=== PATIENT | male | born 1995 | race American Indian/Alaskan Native ===

== ENCOUNTER 2020-12-13 18:31 | Emergency (ER) | payer OTHER ==
[2020-12-13] MEDS ORDERED: oxyCODONE /ACETAMINOPHEN 5-325MG TAB PO ONE (18:56)
[2020-12-13] MEDS ORDERED: ONDANSETRON 4 MG ODT TAB PO ONE (18:56)
--- NOTE | 2020-12-13 18:59 | Emergency Department Report ---
ED General Adult HPI - General Chief complaint: Extremity Injury, Lower Stated complaint: LEG INJURY Time Seen by Provider: 12/13/20 18:51 Source: patient Mode of arrival: Ambulatory Limitations: No Limitations - History of Present Illness Initial comments: 25-year-old male patient presents to the emergency department with complaints of a crush injury to his right foot occurring prior to arrival. Patient states he was working on a van when one of the tires accidentally ran over his foot. Tetanus is up-to-date. No other injuries. - Related Data Previous Rx's Medication Instructions Recorded Last Taken Type Mupirocin [Bactroban 2%] 1 applic TP TID #1 tube 12/13/20 Unknown Rx Allergies Allergy/AdvReac Type Severity Reaction Status Date / Time No Known Allergies Allergy Verified 12/13/20 18:53 ED Review of Systems ROS: Stated complaint: LEG INJURY Other details as noted in HPI Other: CARDIOVASCULAR: Negative for chest pain. PULMONARY: Negative for dyspnea. GASTROINTESTINAL: Negative for abdominal pain. MUSCULOSKELETAL: Positive for joint pain. NEUROLOGICAL: Negative for headache. INTEGUMENTARY: Positive for skin tears. ED Past Medical Hx - Past Medical History Hx Asthma: Yes - Medications Home Medications: Home Medications Medication Instructions Recorded Confirmed Last Taken Type Mupirocin [Bactroban 2%] 1 applic TP TID #1 tube 12/13/20 Unknown Rx ED Physical Exam - General Limitations: No Limitations - Other Other exam information: General: Awake, appropriately interactive, no acute distress. Neck: Supple. Full range of motion intact. Cardiovascular: Normal peripheral perfusion. Pulmonary: No respiratory distress. Patient is speaking normally without use of accessory muscles. Skin: No apparent rashes. Neurological: No facial asymmetry. Speech is clear. Follows commands. Patient is alert and oriented. Musculoskeletal: Tenderness to palpation throughout the dorsal aspect of the right foot without obvious deformity or dislocation. Two large skin tears noted to the dorsum of the foot and along the lateral malleolus. Bleeding is controlled. The wounds do not appear grossly contaminated. Sensation intact. No plantar ecchymosis. Strong dorsalis pedis pulse. Compartments are soft. Pain is appropriately proportional to exam findings. Distal neurovascular and motor/sensory function intact. Psych: Cooperative. Appropriate mood and affect. ED Course Vital Signs 12/13/20 12/13/20 18:45 18:53 Temperature 98.4 F 98.0 F Pulse Rate 87 66 Respiratory 18 12 Rate Blood Pressure 120/72 Blood Pressure 129/78 [Right] O2 Sat by Pulse 95 100 Oximetry ED Medical Decision Making - Medical Decision Making Differential diagnosis including but not limited to: sprain, strain, fracture, contusion, dislocation, compartment syndrome On reevaluation, patient remains stable. Repeat neurovascular exam remains intact. X-rays without acute process. Pain is appropriately proportional to exam findings without clinical evidence to suggest compartment syndrome. Patient will be discharged home with topical antibiotics and primary care provider referral for close outpatient follow-up. Patient expressed understanding and is agreeable to plan of care. RICE precautions discussed. Wound care precautions discussed. Strict return precautions provided. Repeat exam is unremarkable and benign. History, exam, diagnostic testing, and current condition do not suggest worrisome pathology to warrant further testing, continued ED treatment, admission, or surgical evaluation at this point. Given the low probability of a significant medical illness, it would be more likely to result in harm than benefit to perform further testing at this stage. Discussed findings, presumptive diagnosis, need for follow-up and specific signs/symptoms that should prompt immediate return to the emergency department. Instructions were explained in detail to the patient in addition to giving written discharge information. Patient expressed understanding and was given the opportunity to ask questions, all of which were satisfactorily answered prior to discharge home. Critical care attestation.: If time is entered above; I have spent that time in minutes in the direct care of this critically ill patient, excluding procedure time. ED Disposition Clinical Impression: Avulsion of skin of right foot Qualifiers: Encounter type: initial encounter Qualified Code(s): S91.301A - Unspecified open wound, right foot, initial encounter Disposition: HOME / SELF CARE / HOMELESS Is pt being admited?: No Does the pt Need Aspirin: No Condition: Stable Instructions: Skin Tear Additional Instructions: Take Tylenol every 4 hours and Motrin every 8 hours as needed for pain. Apply Bactroban ointment to affected area 3 times daily. Keep wounds clean and covered. Change dressing daily. Keep right foot elevated as often as possible to reduce swelling. Apply ice to affected area as needed to reduce swelling. Follow-up with primary care provider this week. Call tomorrow to schedule an appointment. See referral information below. Return to the emergency department immediately for new or worsening symptoms. Prescriptions: Mupirocin [Bactroban 2%] 1 applic TP TID #1 tube Referrals: GOLDY MATTA MD [Staff Physician] - 3-5 Days [facility] [Provider Group] - 3-5 Days Forms: Work/School Release Form(ED) Time of Disposition: 19:55
[2020-12-13 19:09] VITALS: BP 129/78
--- NOTE | 2020-12-13 19:28 | XRay Report ---
RIGHT FOOT, 3 VIEWS INDICATION / CLINICAL INFORMATION: crush injury. COMPARISON: None available. FINDINGS: No fracture or dislocation. No appreciable soft tissue abnormality. IMPRESSION: No visible fracture or dislocation. Signer Name: Mildred Ayers MD Signed: 12/13/2020 7:24 PM Workstation Name: [id number]
--- NOTE | 2020-12-13 19:28 | XRay Report ---
RIGHT ANKLE, 3 VIEWS INDICATION / CLINICAL INFORMATION: crush injury. COMPARISON: None available. FINDINGS: No fracture or malalignment of the ankle is noted. No significant soft tissue trauma identified. IMPRESSION: Negative radiographs of the right ankle. Signer Name: Mildred Ayers MD Signed: 12/13/2020 7:23 PM Workstation Name: [id number]
[2020-12-13] MEDS ORDERED: NEOMY 3.5 MG/BACIT 400 UNITS/POLY B 5000 UNITS/GM OINT PACKET TP ONE (19:48)
== END 2020-12-13 20:18 | disposition home or self-care (01) ==
LOC: ED 18:31
DX: S91.301A Unspecified open wound, right foot, initial encounter (principal); J45.909 Unspecified asthma, uncomplicated; V59.3XXA Occupant (driver) (passenger) of pick-up truck or van injured in unspecified nontraffic accident, initial encounter; Y93.89 Activity, other specified; Y92.89 Other specified places as the place of occurrence of the external cause; Y99.8 Other external cause status
CPT/HCPCS: 73610; 73630; 99283; A6250; Q0162